=== PATIENT | male | born 1975 | race Caucasian/White ===

== ENCOUNTER 2019-10-06 17:39 | Emergency (ER) | payer OTHER ==
[2019-10-06 17:53] VITALS: TEMP 98.1; BMI 33.2
[2019-10-06] MEDS ORDERED: SODIUM CHLORIDE 0.9% 500 ML INFUS.BAG IV ONE (18:10)
--- NOTE | 2019-10-06 18:10 | PDOC ---
History of Present Illness - General Chief Complaint: Pain Stated Complaint: LEFT BACK, LEFT GROIN PAIN History Source: Patient Exam Limitations: No Limitations - History of Present Illness Initial Comments: 10/06/19 18:06 43-year-old male history of renal colic in the past here today complaining of left flank left groin pain states is been intermittent over the last 2 weeks today he started noticing large hematuria pain is now more severe rating to the left groin occasionally to the left testicle no moderating factors no new weakness numbness or tingling has had to have lithotripsy in the past for an 8 mm stone denies any fevers chills is still able to urinate took an oxycodone which he had leftover from his prior kidney stones prior to arrival it did help his pain Past History - Medical History Allergies/Adverse Reactions: Allergies Allergy/AdvReac Type Severity Reaction Status Date / Time No Known Allergies Allergy Verified 10/06/19 17:43 Home Medications: Ambulatory Orders Allopurinol [Zyloprim -] 100 mg PO DAILY 10/06/19 Metformin HCl [Glucophage] 500 mg PO BID 10/06/19 Ondansetron [Zofran *Odt*] 4 mg SL TID PRN #12 od.tablet 10/06/19 Oxycodone HCl/Acetaminophen [Percocet 5-325 mg Tablet] 1 tab PO Q6H PRN #12 tablet MDD 4 tabs 10/06/19 COPD: No Diabetes: Yes Kidney Stones: Yes Other medical history: GOUT - Psycho-Social/Smoking History Smoking History: Never smoked Have you smoked in the past 12 months: No Information on smoking cessation initiated: No - Substance Abuse Hx (Audit-C & DAST Scrn) How often the patient has a drink containing alcohol: Never Score: In Men: 4 or > Positive; In Women: 3 or > Positive: 0 Screen Result (Pos requires Nsg. Audit-10AR): Negative In the last yr the pt used illegal drug/Rx for NonMed reason: No Score: Yes response is considered Positive: 0 Screen Result (Positive result requires Nsg. DAST-10): Negative Review of Systems - Review of Systems Constitutional: No: Chills, Diaphoresis, Fever HEENTM: No: Eye Pain Respiratory: No: Cough, Orthopnea, Shortness of Breath Cardiac (ROS): No: Chest Pain, Edema ABD/GI: No: Abdominal Distended : Yes: Hematuria. No: Burning, Dysuria Musculoskeletal: Yes: Back Pain Integumentary: No: Bruising, Change in Color Neurological: No: Headache All Other Systems: Reviewed and Negative *Physical Exam - Vital Signs Last Vital Signs Temp Pulse Resp BP Pulse Ox 98.1 F 99 H 18 160/112 H 98 10/06/19 17:40 10/06/19 17:40 10/06/19 17:40 10/06/19 17:40 10/06/19 17:40 - Physical Exam 10/06/19 18:09 Awake alert no acute distress lungs are clear bilaterally heart is regular murmurs rubs or gallops abdomen soft and nontender extremities are warm and well perfused neurological patient is awake alert and oriented x3 ED Treatment Course - LABORATORY CBC & Chemistry Diagram: 10/06/19 18:30 10/06/19 18:16 Medical Decision Making - Medical Decision Making 10/06/19 18:09 43-year-old male history of previous renal colic here today with left flank pain rating to the rough left groin and hematuria suspect likely recurrent kidney stone plan CT spiral UA basic labs. Will give pain control with Toradol and IV fluids due to the fact that the [employer] CAT scan is down the patient will be transferred to [facility] for imaging and transferred back Discharge - Discharge Information Problems reviewed: Yes Clinical Impression/Diagnosis: Renal colic on left side Condition: Stable - Additional Discharge Information Prescriptions: Oxycodone HCl/Acetaminophen [Percocet 5-325 mg Tablet] 1 tab PO Q6H PRN #12 tablet MDD 4 tabs PRN Reason: Severe Pain Ondansetron [Zofran *Odt*] 4 mg SL TID PRN #12 od.tablet PRN Reason: Nausea - Follow up/Referral Referrals: Chela Medina MD [Staff Physician] - Call tomorrow - Patient Discharge Instructions Patient Printed Discharge Instructions: Kidney Stones -- Adult Additional Instructions: Drink plenty of water Ibuprofen/naproxen/acetaminophen as needed for mild pain Percocet 5/325 1 tablet every 6 hours as needed for severe pain Zofran ODT 4 mg up to 3 times a day as needed for nausea Call urologist () office in AM to arrange follow-up within the next 2 to 3 days Return to ER if you have persistent severe pain or vomiting/fever - Post Discharge Activity
[2019-10-06] MEDS ORDERED: KETOROLAC TROMETHAMINE 30 MG/1 ML VIAL IVPUSH ONE (18:11)
[2019-10-06] MEDS ORDERED: KETOROLAC TROMETHAMINE 30 MG/1 ML VIAL ONE (18:20)
[2019-10-06 18:37] LABS: BASO % 0.3 % (0-2.0); EOS % 0.1 % (0-4.5); HEMATOCRIT 46.4 % (35.4-49); HEMOGLOBIN 15.9 GM/dl (11.7-16.9); LYMPH % 14.1 % (8-40); MCHC 34.3 g/dl (32.0-35.9); MEAN CELL VOLUME 87.5 fl (80-96); MONO % 1.9 % (3.8-10.2); NEUT % 83.6 % (42.8-82.8); PLATELET COUNT 395 K/MM3 (134-434); RDW 12.8 % (11.9-15.9); WHITE BLOOD COUNT 11.8 K/mm3 (4.0-10.8)
[2019-10-06 18:52] LABS: ALBUMIN 5.3 g/dl (3.4-5.0); CALCIUM 10.4 mg/dl (8.5-10); CREATININE 0.9 mg/dl (0.55-1.3); POTASSIUM 4.9 mmol/L (3.5-5.1); TOT PROT 8.9 g/dl (6.4-8.2)
[2019-10-06 19:38] VITALS: BP 172/98; PULSE 89
--- NOTE | 2019-10-06 19:38 | PDOC ---
*Physical Exam - Vital Signs Last Vital Signs Temp Pulse Resp BP Pulse Ox 98.1 F 99 H 18 160/112 H 98 10/06/19 17:40 10/06/19 17:40 10/06/19 17:40 10/06/19 17:40 10/06/19 17:40 ED Treatment Course - LABORATORY CBC & Chemistry Diagram: 10/06/19 18:30 10/06/19 18:16 - ADDITIONAL ORDERS Additional order review: Laboratory Results 10/06/19 10/06/19 18:16 18:05 Sodium 139 Potassium 4.9 Chloride 103 Carbon Dioxide 26 Anion Gap 10 BUN 19.0 H Creatinine 0.9 Est GFR (CKD-EPI)AfAm 121.67 Est GFR (CKD-EPI)NonAf 104.98 Random Glucose 124 H Calcium 10.4 H Total Bilirubin 1.0 AST 31 ALT 42 Alkaline Phosphatase 29 L Total Protein 8.9 H Albumin 5.3 H Urine Color Yellow Urine Appearance Slightly Urine pH 5.5 Urine Protein 2+ H Urine Glucose (UA) Negative Urine Ketones Trace Urine Blood 3+ H Urine Nitrite Negative Urine Bilirubin Negative Urine Urobilinogen 0.2 Ur Leukocyte Esterase Trace H Urine RBC 20-40 Urine WBC 40-60 Urine Bacteria Few 10/06/19 18:30 RBC 5.30 MCV 87.5 MCHC 34.3 RDW 12.8 MPV 7.0 L Neutrophils % 83.6 H Lymphocytes % 14.1 Monocytes % 1.9 L Eosinophils % 0.1 Basophils % 0.3 - Medications Given in the ED: ED Medications Discontinued Medications Generic Name Dose Route Start Last Admin Trade Name Freq PRN Reason Stop Dose Admin Ketorolac Tromethamine 30 mg 10/06/19 18:11 10/06/19 18:28 Toradol Injection - IVPUSH 10/06/19 18:12 30 mg ONCE ONE Administration Sodium Chloride 1,000 ml 10/06/19 18:10 10/06/19 18:28 Normal Saline - IV 10/06/19 18:11 1,000 ml ONCE ONE Administration ED Progress Note - Progress Note Progress Note: Care of this patient received from Dr. Mendieta Patient had renal stone protocol CT for left CVA/flank pain and microscopic hematuria Imaging study notable for 1.4 cm x 1 cm calculus within the left renal pelvis with mild to moderate hydronephrosis After patient returned from CT, he had recurrence of flank pain (it had been relieved with IV Toradol) along with nausea and vomiting. He received Dilaudid 1 mg IV, Toradol 4 mg IV and a liter normal saline After above medications, the patient was comfortable. Results of the study were discussed with him. The patient currently does not have an urologist. Referral information for Dr. Chela Medina provided for the patient. He should call the office tomorrow and arrange for follow-up within the next few days. Meanwhile, prescriptions for Percocet 5/325 (#12) to be used up to 4 times a day for severe pain and Zofran ODT 4 mg to be used as needed for nausea/vomiting having sent to his pharmacy. He should continue to drink plenty of fluids and use ibuprofen/naproxen/acetaminophen as needed for mild to moderate pain If he has pain that is persistent, he should return to the emergency room. Also, he should return if he develops fever/chills or persistent vomiting. Discharge - Discharge Information Problems reviewed: Yes Clinical Impression/Diagnosis: Renal colic on left side Condition: Stable - Additional Discharge Information Prescriptions: Oxycodone HCl/Acetaminophen [Percocet 5-325 mg Tablet] 1 tab PO Q6H PRN #12 tablet MDD 4 tabs PRN Reason: Severe Pain Ondansetron [Zofran *Odt*] 4 mg SL TID PRN #12 od.tablet PRN Reason: Nausea - Follow up/Referral Referrals: Chela Medina MD [Staff Physician] - Call tomorrow - Patient Discharge Instructions Patient Printed Discharge Instructions: Kidney Stones -- Adult Additional Instructions: Drink plenty of water Ibuprofen/naproxen/acetaminophen as needed for mild pain Percocet 5/325 1 tablet every 6 hours as needed for severe pain Zofran ODT 4 mg up to 3 times a day as needed for nausea Call urologist () office in AM to arrange follow-up within the next 2 to 3 days Return to ER if you have persistent severe pain or vomiting/fever - Post Discharge Activity
[2019-10-06] MEDS ORDERED: SODIUM CHLORIDE 1,000 ML IV STA (20:39)
[2019-10-06] MEDS ORDERED: HYDROmorphone HCL CARPU-JECT 1 MG/1 ML DISP.SYRIN IVPUSH ONE (20:39)
[2019-10-06] MEDS ORDERED: ONDANSETRON 4 MG/2 ML VIAL IVPUSH ONE (20:43)
[2019-10-06] MEDS ORDERED: HYDROmorphone HCL CARPU-JECT 1 MG/1 ML DISP.SYRIN ONE (20:43)
[2019-10-06] MEDS ORDERED: ONDANSETRON 4 MG/2 ML VIAL ONE (20:51)
== END 2019-10-06 22:59 ==
LOC: FER 17:39
PROC: 3E0333Z Introduction of Anti-inflammatory into Peripheral Vein, Percutaneous Approach (ICD-10-PCS; principal; 2019-10-06)
PROC: 3E033GC Introduction of Other Therapeutic Substance into Peripheral Vein, Percutaneous Approach (ICD-10-PCS; 2019-10-06)
PROC: 3E0337Z Introduction of Electrolytic and Water Balance Substance into Peripheral Vein, Percutaneous Approach (ICD-10-PCS; 2019-10-06)
DX: N23 Unspecified renal colic (principal)
CPT/HCPCS: 36415; 74176-TC; 80053; 81003; 81015; 85025; 99284-25

== ENCOUNTER 2024-07-14 18:44 | Emergency (ER) | payer OTHER ==
[2024-07-14 19:38] VITALS: BP 179/102; PULSE 107; RESP 19; TEMP 99; BMI 18.6
[2024-07-14] MEDS ORDERED: ACETAMINOPHEN 500 MG TABLET (FP) ONE (19:52)
[2024-07-14] MEDS: ACETAMINOPHEN 500 MG TABLET (FP) PO ONE (19:57)
== END 2024-07-14 20:34 | disposition home or self-care (01) ==
LOC: FER 18:44
DX: S00.03XA Contusion of scalp, initial encounter (principal); S70.02XA Contusion of left hip, initial encounter; S60.221A Contusion of right hand, initial encounter; S60.222A Contusion of left hand, initial encounter; V03.10XA Pedestrian on foot injured in collision with car, pick-up truck or van in traffic accident, initial encounter
CPT/HCPCS: 70450-TC; 73502-TC-LT-FY; 99284-25